=== PATIENT | female | born 1955 | race Caucasian/White ===

== ENCOUNTER 2021-01-17 17:21 | Inpatient (IN) ==
[2021-01-17] MEDS ORDERED: ONDANSETRON 4 MG/2 ML VIAL IV STA (17:46)
[2021-01-17] MEDS ORDERED: HYDROmorphone 2 MG/1 ML VIAL IV STA (17:46)
[2021-01-17 18:22] LABS: Basophils % 0.1 % (0.0-0.8); Hematocrit 31.9 VOL% (35.7-47.0); Immature Granulocytes % 0.6 %; Immature Granulocytes Absolute 0.07 #; Lymphocytes # 0.7 10*3/uL (1.4-4.0); Lymphocytes % 6.6 % (21.3-54.2); Mean Corpuscular HGB Conc 34.5 GM/DL (32-36); Mean Corpuscular Volume 82.4 FL (87-102); Mean Platelet Volume 9.9 FL (9.6-12.0); Monocytes % 5.9 % (1.7-12.7); Neutrophils % 86.8 % (38.7-73.9); Platelet Count 185 T/CUMM (130-400); Red Blood Count 3.87 MC/CUMM (3.8-5.5); Red Cell Distribution Width 12.9 % (9.3-17.3); White Blood Count 11.2 T/CUMM (4-12)
[2021-01-17 18:44] LABS: Alanine Aminotransferase 32 U/L (13-56); Albumin 2.4 G/DL (3.4-5.0); Alkaline Phosphatase 96 U/L (45-117); Aspartate Amino Transferase 49 U/L (0-37); Blood Urea Nitrogen 28 MG/DL (7-18); Carbon Dioxide 22 MMOL/L (21-32); Estimated Glom Filtration Rate 54 ML/MIN; Glucose 317 MG/DL (74-106); Osmolality,Calculated 296.4 MOS/KG (273-304); Potassium 2.7 MMOL/L (3.5-5.1); Sodium 140 MMOL/L (136-145); Total Protein 6.9 G/DL (6.4-8.2)
[2021-01-17] MEDS ORDERED: CLINDAMYCIN INJ 600 MG/50 ML PREMIX IV STA (18:52)
[2021-01-17] MEDS ORDERED: SODIUM CHLORIDE 0.9% 1,000 ML IV STA (18:52)
[2021-01-17] MEDS ORDERED: DEXAMETHASONE 4 MG/1 ML VIAL IM STA (18:52)
[2021-01-17] MEDS ORDERED: DIPH/TET/ACEL PERT BOOSTER VACCINE 0.5 ML VIAL IM ONE (18:52)
[2021-01-17] MEDS ORDERED: POTASSIUM CHLORIDE RIDER 20 MEQ/100 ML PREMIX IV STA (20:00)
[2021-01-17] MEDS: POTASSIUM CHLORIDE RIDER 10 MEQ/100 ML PREMIX IV SCH (20:24)
[2021-01-17] MEDS ORDERED: ONDANSETRON 4 MG/2 ML VIAL IV PRN (20:47)
[2021-01-17] MEDS ORDERED: GLUCAGON 1 MG VIAL IM PRN (20:47)
[2021-01-17] MEDS ORDERED: DEXTROSE 50% 25 GM/50 ML VIAL IV PRN ×2 (20:47)
[2021-01-17] MEDS ORDERED: LEVOFLOXACIN INJ 750 MG/150 ML PREMIX IV SCH (21:00)
[2021-01-17 21:51] LABS: Bilirubin,Urine Negative (Negative); Blood, Urine Small mg/dL (Negative); Glucose,Urine (UA) >=500 mg/dL (Negative); Hyaline Casts,Urine 7 /LPF (0-3); Ketones,Urine 20 mg/dL (Negative); Mucus,Urine Occasional /LPF (Occasional); Nitrite,Urine Negative (Negative); Protein,Urine 30 MG/DL; RBC,Urine 1 /HPF (0-4); Squamous Epithelial Cell,Urine Occasional /HPF (0-10); Urine Appearance CLEAR (Clear); Urine Color Yellow (Yellow); Urine Specific Gravity 1.018 (1.001-1.035)
[2021-01-17] MEDS: INSULIN REGULAR 100 UNIT/ML SUBCUT SCH (23:55)
[2021-01-18] MEDS: POTASSIUM CHLORIDE RIDER 10 MEQ/100 ML PREMIX IV SCH (00:15)
[2021-01-18] MEDS: SODIUM CHLORIDE 0.9% 1,000 ML IV SCH ×4 (00:18→23:36)
[2021-01-18] MEDS: ASCORBIC ACID 500 MG TABLET PO SCH ×3 (00:27→20:49)
[2021-01-18] MEDS: AZITHROMYCIN INJ 500 MG in SODIUM CHLORIDE 0.9% 250 ML IV SCH ×2 (00:27→23:34)
[2021-01-18] MEDS: FAMOTIDINE 20 MG TABLET PO SCH ×3 (00:27→20:49)
[2021-01-18 07:50] LABS: Basophils % 0.1 % (0.0-0.8); Hemoglobin 9.3 GM/DL (12.0-16.0); Immature Granulocytes % 0.7 %; Immature Granulocytes Absolute 0.08 #; Lymphocytes # 0.7 10*3/uL (1.4-4.0); Lymphocytes % 6.7 % (21.3-54.2); Mean Corpuscular HGB Conc 33.2 GM/DL (32-36); Mean Corpuscular Volume 84.8 FL (87-102); Mean Platelet Volume 9.2 FL (9.6-12.0); Monocytes % 5.4 % (1.7-12.7); Neutrophils % 87.1 % (38.7-73.9); Platelet Count 169 T/CUMM (130-400); Red Cell Distribution Width 13.3 % (9.3-17.3); White Blood Count 10.8 T/CUMM (4-12)
[2021-01-18 08:19] LABS: Albumin 2.1 G/DL (3.4-5.0); Bilirubin,Total 0.5 MG/DL (0.20-1.00); Calcium 7.7 MG/DL (8.5-10.1); Ferritin 302.5 ng/ml (8-252); Osmolality,Calculated 292.3 MOS/KG (273-304); Potassium 3.1 MMOL/L (3.5-5.1)
[2021-01-18] MEDS ORDERED: IVERMECTIN 3 MG TABLET PO SCH (09:00)
[2021-01-18] MEDS: INSULIN REGULAR 100 UNIT/ML SUBCUT SCH ×4 (09:14→22:57)
[2021-01-18] MEDS: DEXAMETHASONE 4 MG/1 ML VIAL IV SCH (10:34)
[2021-01-18] MEDS: ZINC GLUCONATE 50 MG TABLET PO SCH (10:35)
[2021-01-18] MEDS: CETIRIZINE 10 MG TABLET PO SCH (10:47)
[2021-01-18] MEDS: CHOLECALCIFEROL 1,000 UNIT TABLET PO SCH (10:47)
[2021-01-18] MEDS ORDERED: hydrALAZINE 20 MG/1 ML VIAL IV PRN (13:35)
[2021-01-18] MEDS ORDERED: ENOXAPARIN 60 MG/0.6 ML SYRINGE ONE (13:40)
[2021-01-18] MEDS: ENOXAPARIN 40 MG/0.4 ML SYRINGE SUBCUT SCH (13:56)
[2021-01-18] MEDS ORDERED: INSULIN GLARGINE 100 UNIT/ML SUBCUT SCH (21:00)
[2021-01-18] MEDS ORDERED: ADENOSINE 6 MG/2 ML VIAL IV ONE (21:34)
[2021-01-19] MEDS: HYDROmorphone 2 MG/1 ML VIAL IV PRN ×3 (01:30→18:54)
[2021-01-19 05:05] LABS: Basophils % 0.2 % (0.0-0.8); Hematocrit 29.6 VOL% (35.7-47.0); Immature Granulocytes % 2.1 %; Immature Granulocytes Absolute 0.27 #; Lymphocytes # 1.1 10*3/uL (1.4-4.0); Lymphocytes % 8.7 % (21.3-54.2); Mean Corpuscular HGB Conc 33.8 GM/DL (32-36); Mean Corpuscular Volume 84.3 FL (87-102); Mean Platelet Volume 9.6 FL (9.6-12.0); Monocytes % 4.7 % (1.7-12.7); Neutrophils % 84.3 % (38.7-73.9); Platelet Count 193 T/CUMM (130-400); Red Blood Count 3.51 MC/CUMM (3.8-5.5); Red Cell Distribution Width 13.2 % (9.3-17.3); White Blood Count 13.1 T/CUMM (4-12)
[2021-01-19 05:22] LABS: Bilirubin,Total 0.8 MG/DL (0.20-1.00); Calcium 8.2 MG/DL (8.5-10.1); Potassium 3.1 MMOL/L (3.5-5.1); Total Protein 6.2 G/DL (6.4-8.2)
[2021-01-19] MEDS: SODIUM CHLORIDE 0.9% 1,000 ML IV SCH ×2 (06:35→18:26)
[2021-01-19] MEDS: INSULIN REGULAR 100 UNIT/ML SUBCUT SCH ×4 (08:56→21:39)
[2021-01-19] MEDS: DEXAMETHASONE 4 MG/1 ML VIAL IV SCH (08:56)
[2021-01-19] MEDS: ZINC GLUCONATE 50 MG TABLET PO SCH (08:57)
[2021-01-19] MEDS: CETIRIZINE 10 MG TABLET PO SCH (08:57)
[2021-01-19] MEDS: ASCORBIC ACID 500 MG TABLET PO SCH ×2 (08:57→21:36)
[2021-01-19] MEDS: CHOLECALCIFEROL 1,000 UNIT TABLET PO SCH (08:57)
[2021-01-19] MEDS: FAMOTIDINE 20 MG TABLET PO SCH ×2 (08:57→21:35)
[2021-01-19] MEDS ORDERED: POTASSIUM CHLORIDE 20 MEQ TABLET PO SCH (14:30)
[2021-01-19] MEDS ORDERED: MECLIZINE 25 MG TABLET PO PRN (15:46)
[2021-01-19] MEDS ORDERED: tiZANidine 4 MG TABLET PO PRN (15:46)
[2021-01-19] MEDS ORDERED: POLYETHYLENE GLYCOL POWDER 17 GM PACK PO PRN (16:07)
[2021-01-19] MEDS: ENOXAPARIN 40 MG/0.4 ML SYRINGE SUBCUT SCH ×2 (18:02→21:34)
[2021-01-19] MEDS: POTASSIUM CHLORIDE 20 MEQ TABLET PO SCH ×2 (18:26→21:36)
[2021-01-19] MEDS: LIDOCAINE 5% PATCH TRANSDERM SCH (18:55)
[2021-01-19] MEDS: AMITRIPTYLINE 75 MG TABLET PO SCH (21:35)
[2021-01-19] MEDS: PROPRANOLOL 40 MG TABLET PO SCH (21:35)
[2021-01-19] MEDS: GABAPENTIN 600 MG TABLET PO SCH (21:36)
[2021-01-19] MEDS: DICLOFENAC 1.3% PATCH 5/PACK TRANSDERM SCH (21:40)
[2021-01-19] MEDS: INSULIN GLARGINE 100 UNIT/ML SUBCUT SCH (21:40)
[2021-01-19] MEDS: AZITHROMYCIN INJ 500 MG in SODIUM CHLORIDE 0.9% 250 ML IV SCH (23:29)
[2021-01-20] MEDS: SODIUM CHLORIDE 0.9% 1,000 ML IV SCH ×3 (01:30→19:43)
[2021-01-20 05:26] LABS: Basophils % 0.1 % (0.0-0.8); Hematocrit 29.2 VOL% (35.7-47.0); Hemoglobin 9.8 GM/DL (12.0-16.0); Immature Granulocytes % 2.4 %; Immature Granulocytes Absolute 0.36 #; Lymphocytes % 6.7 % (21.3-54.2); Mean Corpuscular HGB Conc 33.6 GM/DL (32-36); Mean Corpuscular Volume 83.7 FL (87-102); Mean Platelet Volume 9.3 FL (9.6-12.0); Monocytes % 3.1 % (1.7-12.7); Neutrophils % 87.7 % (38.7-73.9); Platelet Count 259 T/CUMM (130-400); Red Blood Count 3.49 MC/CUMM (3.8-5.5); Red Cell Distribution Width 13.1 % (9.3-17.3)
[2021-01-20 06:02] LABS: Bilirubin,Total 1.3 MG/DL (0.20-1.00); Calcium 8.3 MG/DL (8.5-10.1); Osmolality,Calculated 279.7 MOS/KG (273-304); Potassium 3.4 MMOL/L (3.5-5.1); Total Protein 6.2 G/DL (6.4-8.2)
[2021-01-20] MEDS: HYDROmorphone 2 MG/1 ML VIAL IV PRN ×2 (06:15→16:45)
[2021-01-20] MEDS: INSULIN REGULAR 100 UNIT/ML SUBCUT SCH ×4 (09:05→21:48)
[2021-01-20] MEDS: CHOLECALCIFEROL 1,000 UNIT TABLET PO SCH (10:16)
[2021-01-20] MEDS: DEXAMETHASONE 4 MG/1 ML VIAL IV SCH (10:16)
[2021-01-20] MEDS: FLUoxetine 20 MG CAPSULE PO SCH (10:16)
[2021-01-20] MEDS: PROPRANOLOL 40 MG TABLET PO SCH ×2 (10:16→21:48)
[2021-01-20] MEDS: FAMOTIDINE 20 MG TABLET PO SCH ×2 (10:17→21:47)
[2021-01-20] MEDS: ASCORBIC ACID 500 MG TABLET PO SCH ×2 (10:17→21:47)
[2021-01-20] MEDS: GABAPENTIN 600 MG TABLET PO SCH ×3 (10:17→21:48)
[2021-01-20] MEDS: ZINC GLUCONATE 50 MG TABLET PO SCH (10:42)
[2021-01-20] MEDS: CETIRIZINE 10 MG TABLET PO SCH (10:42)
[2021-01-20] MEDS: DICLOFENAC 1.3% PATCH 5/PACK TRANSDERM SCH ×2 (11:35→21:49)
[2021-01-20] MEDS ORDERED: ALBUTEROL INHALER 18 GM INH PRN (11:57)
[2021-01-20] MEDS: amLODIPine 5 MG TABLET PO SCH (12:44)
[2021-01-20] MEDS: LIDOCAINE 5% PATCH TRANSDERM SCH (15:20)
[2021-01-20] MEDS: POTASSIUM CHLORIDE 20 MEQ TABLET PO PRN ×2 (15:20→17:05)
[2021-01-20] MEDS: ALBUTEROL INHALER 18 GM INH SCH ×3 (19:43→22:14)
[2021-01-20] MEDS: AMITRIPTYLINE 75 MG TABLET PO SCH (21:48)
[2021-01-20] MEDS: INSULIN GLARGINE 100 UNIT/ML SUBCUT SCH (21:48)
[2021-01-20] MEDS: ENOXAPARIN 40 MG/0.4 ML SYRINGE SUBCUT SCH (21:49)
[2021-01-20] MEDS: AZITHROMYCIN INJ 500 MG in SODIUM CHLORIDE 0.9% 250 ML IV SCH (22:13)
[2021-01-21] MEDS: SODIUM CHLORIDE 0.9% 1,000 ML IV SCH ×3 (02:35→23:24)
[2021-01-21] MEDS: ALBUTEROL INHALER 18 GM INH SCH ×6 (04:05→23:00)
[2021-01-21 05:13] LABS: Basophils % 0.2 % (0.0-0.8); Hematocrit 29.8 VOL% (35.7-47.0); Hemoglobin 9.9 GM/DL (12.0-16.0); Immature Granulocytes % 5.9 %; Immature Granulocytes Absolute 0.77 #; Lymphocytes # 0.9 10*3/uL (1.4-4.0); Lymphocytes % 7.2 % (21.3-54.2); Mean Corpuscular HGB Conc 33.2 GM/DL (32-36); Mean Corpuscular Volume 84.9 FL (87-102); Mean Platelet Volume 9.2 FL (9.6-12.0); Monocytes % 3.9 % (1.7-12.7); NRBC # 0.02 10*3/uL; Neutrophils % 82.8 % (38.7-73.9); Platelet Count 265 T/CUMM (130-400); Red Blood Count 3.51 MC/CUMM (3.8-5.5); Red Cell Distribution Width 13.1 % (9.3-17.3)
[2021-01-21 05:51] LABS: Lymphocytes 6 % (20-55); Nucleated Red Blood Cells 1 (0-5); Platelet Estimate Normal; Segmented Neutrophils 92 % (50-85); Total Cells Counted 100
[2021-01-21 06:02] LABS: Albumin 1.7 G/DL (3.4-5.0); Bilirubin,Total 1.8 MG/DL (0.20-1.00); Calcium 8.1 MG/DL (8.5-10.1); Ferritin 339.9 ng/ml (8-252); Osmolality,Calculated 281.5 MOS/KG (273-304); Potassium 3.6 MMOL/L (3.5-5.1); Total Protein 6.1 G/DL (6.4-8.2)
[2021-01-21] MEDS: INSULIN REGULAR 100 UNIT/ML SUBCUT SCH ×4 (08:20→21:07)
[2021-01-21] MEDS: ASCORBIC ACID 500 MG TABLET PO SCH ×2 (09:41→21:05)
[2021-01-21] MEDS: DEXAMETHASONE 4 MG/1 ML VIAL IV SCH (09:41)
[2021-01-21] MEDS: CHOLECALCIFEROL 1,000 UNIT TABLET PO SCH (09:41)
[2021-01-21] MEDS: GABAPENTIN 600 MG TABLET PO SCH ×3 (09:41→21:05)
[2021-01-21] MEDS: DICLOFENAC 1.3% PATCH 5/PACK TRANSDERM SCH ×2 (09:42→21:07)
[2021-01-21] MEDS: FLUoxetine 20 MG CAPSULE PO SCH (09:42)
[2021-01-21] MEDS: amLODIPine 5 MG TABLET PO SCH (09:42)
[2021-01-21] MEDS: FAMOTIDINE 20 MG TABLET PO SCH ×2 (09:42→21:05)
[2021-01-21] MEDS: PROPRANOLOL 40 MG TABLET PO SCH ×2 (09:42→21:05)
[2021-01-21] MEDS: CETIRIZINE 10 MG TABLET PO SCH (09:42)
[2021-01-21] MEDS: HYDROmorphone 2 MG/1 ML VIAL IV PRN (11:35)
[2021-01-21] MEDS: ZINC GLUCONATE 50 MG TABLET PO SCH (11:35)
[2021-01-21] MEDS ORDERED: amLODIPine 5 MG TABLET PO ONE (14:51)
[2021-01-21] MEDS: LIDOCAINE 5% PATCH TRANSDERM SCH (17:19)
[2021-01-21] MEDS: ENOXAPARIN 40 MG/0.4 ML SYRINGE SUBCUT SCH (21:05)
[2021-01-21] MEDS: AMITRIPTYLINE 75 MG TABLET PO SCH (21:05)
[2021-01-21] MEDS: INSULIN GLARGINE 100 UNIT/ML SUBCUT SCH (21:07)
[2021-01-21] MEDS ORDERED: AZITHROMYCIN 250 MG TABLET PO ONE (22:00)
[2021-01-21] MEDS: AZITHROMYCIN INJ 500 MG in SODIUM CHLORIDE 0.9% 250 ML IV SCH (23:24)
[2021-01-22] MEDS: ACETAMINOPHEN 325 MG TABLET PO PRN ×2 (01:35→20:30)
[2021-01-22] MEDS: ALBUTEROL INHALER 18 GM INH SCH ×5 (03:26→21:13)
[2021-01-22 06:25] LABS: Basophils % 0.2 % (0.0-0.8); Hematocrit 28.5 VOL% (35.7-47.0); Hemoglobin 9.7 GM/DL (12.0-16.0); Immature Granulocytes % 6.2 %; Immature Granulocytes Absolute 1.06 #; Lymphocytes # 1.2 10*3/uL (1.4-4.0); Mean Corpuscular Volume 83.8 FL (87-102); Mean Platelet Volume 9.1 FL (9.6-12.0); NRBC # 0.08 10*3/uL; Neutrophils % 83.6 % (38.7-73.9); Platelet Count 309 T/CUMM (130-400); Red Cell Distribution Width 12.9 % (9.3-17.3)
[2021-01-22 06:48] LABS: Hypochromasia 1+; Lymphocytes 5 % (20-55); Microcytosis 1+; Platelet Estimate Adequate; Segmented Neutrophils 91 % (50-85); Total Cells Counted 100
[2021-01-22 06:50] LABS: Albumin 1.6 G/DL (3.4-5.0); Bilirubin,Total 1.1 MG/DL (0.20-1.00); Calcium 8.3 MG/DL (8.5-10.1); Ferritin 323.8 ng/ml (8-252); Osmolality,Calculated 281.3 MOS/KG (273-304); Potassium 2.9 MMOL/L (3.5-5.1)
[2021-01-22] MEDS: POTASSIUM CHLORIDE 20 MEQ TABLET PO SCH ×2 (07:19→18:02)
[2021-01-22] MEDS: INSULIN REGULAR 100 UNIT/ML SUBCUT SCH ×4 (07:35→21:14)
[2021-01-22] MEDS: FLUoxetine 20 MG CAPSULE PO SCH (11:45)
[2021-01-22] MEDS: amLODIPine 10 MG TABLET PO SCH (11:50)
[2021-01-22] MEDS: DEXAMETHASONE 4 MG/1 ML VIAL IV SCH (11:50)
[2021-01-22] MEDS: CEFEPIME 1,000 MG in SODIUM CHLORIDE 0.9% 100 ML IV SCH ×3 (11:50→20:30)
[2021-01-22] MEDS: amLODIPine 5 MG TABLET PO SCH (11:50)
[2021-01-22] MEDS: GABAPENTIN 600 MG TABLET PO SCH ×3 (11:50→20:30)
[2021-01-22] MEDS: FAMOTIDINE 20 MG TABLET PO SCH ×2 (11:50→20:30)
[2021-01-22] MEDS: PROPRANOLOL 40 MG TABLET PO SCH ×2 (11:50→21:14)
[2021-01-22] MEDS: CHOLECALCIFEROL 1,000 UNIT TABLET PO SCH (12:27)
[2021-01-22] MEDS: ASCORBIC ACID 500 MG TABLET PO SCH ×2 (12:27→20:30)
[2021-01-22] MEDS: ZINC GLUCONATE 50 MG TABLET PO SCH (12:28)
[2021-01-22] MEDS: CETIRIZINE 10 MG TABLET PO SCH (12:28)
[2021-01-22] MEDS: DICLOFENAC 1.3% PATCH 5/PACK TRANSDERM SCH ×2 (14:21→21:13)
[2021-01-22] MEDS: LACTATED RINGERS 1,000 ML IV SCH (14:37)
[2021-01-22] MEDS: LOSARTAN 50 MG TABLET PO SCH (18:02)
[2021-01-22] MEDS: LIDOCAINE 5% PATCH TRANSDERM SCH (18:03)
[2021-01-22] MEDS: HYDROmorphone 2 MG/1 ML VIAL IV PRN (18:25)
[2021-01-22] MEDS: POTASSIUM CHLORIDE 20 MEQ TABLET PO PRN (20:30)
[2021-01-22] MEDS: ENOXAPARIN 40 MG/0.4 ML SYRINGE SUBCUT SCH (20:30)
[2021-01-22] MEDS: AMITRIPTYLINE 75 MG TABLET PO SCH (21:13)
[2021-01-22] MEDS: INSULIN GLARGINE 100 UNIT/ML SUBCUT SCH (21:14)
[2021-01-23] MEDS: ALBUTEROL INHALER 18 GM INH SCH ×5 (00:04→16:18)
[2021-01-23] MEDS: LACTATED RINGERS 1,000 ML IV SCH ×2 (02:27→17:23)
[2021-01-23] MEDS: CEFEPIME 1,000 MG in SODIUM CHLORIDE 0.9% 100 ML IV SCH ×3 (02:27→15:28)
[2021-01-23] MEDS: HYDROmorphone 2 MG/1 ML VIAL IV PRN ×2 (04:50→10:37)
[2021-01-23 06:44] LABS: Basophils # 0.1 10*3/uL (0.0-0.2); Basophils % 0.3 % (0.0-0.8); Eosinophils % 0.2 % (0.00-10.9); Hematocrit 29.2 VOL% (35.7-47.0); Hemoglobin 10.1 GM/DL (12.0-16.0); Immature Granulocytes % 7.2 %; Immature Granulocytes Absolute 1.39 #; Lymphocytes % 5.3 % (21.3-54.2); Mean Corpuscular HGB Conc 34.6 GM/DL (32-36); Mean Corpuscular Volume 83.7 FL (87-102); Monocytes % 2.3 % (1.7-12.7); NRBC # 0.05 10*3/uL; Neutrophils % 84.7 % (38.7-73.9); Platelet Count 334 T/CUMM (130-400); Red Blood Count 3.49 MC/CUMM (3.8-5.5); Red Cell Distribution Width 13.2 % (9.3-17.3); White Blood Count 19.2 T/CUMM (4-12)
[2021-01-23 07:16] LABS: Calcium 8.1 MG/DL (8.5-10.1); Ferritin 435.3 ng/ml (8-252); Osmolality,Calculated 279.4 MOS/KG (273-304); Potassium 3.2 MMOL/L (3.5-5.1)
[2021-01-23] MEDS ORDERED: POTASSIUM CHLORIDE 20 MEQ TABLET PO ONE (07:59)
[2021-01-23] MEDS: INSULIN REGULAR 100 UNIT/ML SUBCUT SCH ×3 (08:41→16:19)
[2021-01-23] MEDS ORDERED: APIXABAN 2.5 MG TABLET PO SCH (09:00)
[2021-01-23] MEDS: PROPRANOLOL 40 MG TABLET PO SCH (10:32)
[2021-01-23] MEDS: LOSARTAN 50 MG TABLET PO SCH (10:32)
[2021-01-23] MEDS: DICLOFENAC 1.3% PATCH 5/PACK TRANSDERM SCH (10:32)
[2021-01-23] MEDS: DEXAMETHASONE 4 MG/1 ML VIAL IV SCH (10:32)
[2021-01-23] MEDS: GABAPENTIN 600 MG TABLET PO SCH ×2 (10:33→15:28)
[2021-01-23] MEDS: ASCORBIC ACID 500 MG TABLET PO SCH (10:33)
[2021-01-23] MEDS: FLUoxetine 20 MG CAPSULE PO SCH (10:33)
[2021-01-23] MEDS: ZINC GLUCONATE 50 MG TABLET PO SCH (10:33)
[2021-01-23] MEDS: amLODIPine 5 MG TABLET PO SCH (10:33)
[2021-01-23] MEDS: CETIRIZINE 10 MG TABLET PO SCH (10:33)
[2021-01-23] MEDS: FAMOTIDINE 20 MG TABLET PO SCH (10:33)
[2021-01-23] MEDS: amLODIPine 10 MG TABLET PO SCH (10:33)
[2021-01-23] MEDS: CHOLECALCIFEROL 1,000 UNIT TABLET PO SCH (10:33)
[2021-01-23 12:05] LABS: Band Neutrophils 2 % (0-10); Lymphocytes 1 % (20-55); Metamyelocytes 2 %; Platelet Estimate Normal; Polychromasia Slight; Segmented Neutrophils 92 % (50-85); Total Cells Counted 100
[2021-01-23] MEDS ORDERED: LOSARTAN 50 MG TABLET PO ONE (12:53)
[2021-01-23] MEDS: LIDOCAINE 5% PATCH TRANSDERM SCH (15:28)
[2021-01-23 21:10] VITALS: BP 175/89
[2021-01-24] MEDS ORDERED: LOSARTAN 50 MG TABLET PO SCH (09:00)
== END 2021-01-23 20:25 | disposition expired | DRG 177 ==
LOC: EDUNIT# → EDBD → N.ED 17:21 → SUATTDRO 20:47 → N.EDINP 20:47 → N.2E 01-18 14:37
PROVIDERS: ADMIT Internal Medicine; ATTEND Emergency Medicine